=== PATIENT | male | born 1975 | race Caucasian/White ===

== ENCOUNTER 2017-07-24 12:13 | Emergency (ER) | payer OTHER ==
[2017-07-24 12:59] LABS: #Basophils 0.1 thou/uL (0.0-0.2); #Eosinphils 0.5 thou/uL (0.0-0.7); #Lymphocytes 2.4 thou/uL (1.20-3.40); #Monocytes 1.1 thou/uL (0.11-0.59); #Neutrophils 5.6 thou/uL (1.40-6.50); %Basophils 0.7 % (0.0-1.0); %Eosinophils 4.9 % (0.0-10.0); %Lymphocytes 24.8 % (21.0-51.0); %Monocytes 11.5 % (0.0-10.0); %Neutrophils 58.1 % (42.0-75.0); Hemoglobin 11.7 g/dL (14.0-18.0); Mean Corpuscular HGB CONC 34.5 g/dL (32.0-36.0); Mean Corpuscular Hemoglobin 31.9 pg (27.0-31.0); Mean Corpuscular Volume 92.4 fl (80.0-94.0); Platelet Count 276 thou/uL (130-400); RBC Distribution Width 11.3 % (11.5-14.5); Red Blood Cell (RBC) Count 3.67 mill/uL (4.70-6.10); White Blood Cell (WBC) Count 9.5 thou/uL (4.8-10.8)
[2017-07-24 13:05] LABS: Prothrombin Time 13.5 SEC (12.0-14.7)
[2017-07-24 13:14] LABS: ALT (SGPT) 34 U/L (8-55); AST (SGOT) 27 U/L (5-34); Alkaline Phosphatase 53 U/L (40-150); Anion Gap 13 mmol/L (10-20); BUN (Urea Nitrogen) 20 mg/dL (8.9-20.6); Bilirubin, Total 0.7 mg/dL (0.2-1.2); Calc. Creatinine Clearance 0 mL/min (70-130); Calcium 9.1 mg/dL (7.8-10.44); Carbon Dioxide 25 mmol/L (22-29); Chloride 105 mmol/L (98-107); Estimated GFR-MDRD 75; Globulin 2.5 g/dL (2.4-3.5); Glucose 84 mg/dL (70-105); Potassium 4.1 mmol/L (3.5-5.1); Protein, Total 6.5 g/dL (6.0-8.3); Sodium 139 mmol/L (136-145)
[2017-07-24] MEDS ORDERED: Pantoprazole 40 MG VIAL ONE ×2 (13:28→14:44)
[2017-07-24] MEDS ORDERED: Morphine 4 MG/ML Carpuject ONE (18:57)
[2017-07-24] MEDS ORDERED: Ondansetron HCl/PF 4 MG/2 ML Vial ONE (18:57)
== END 2017-07-24 21:10 | disposition short-term general hospital (02) ==
LOC: SCSER 12:13
DX: K92.2 Gastrointestinal hemorrhage, unspecified (principal); E78.5 Hyperlipidemia, unspecified; E11.9 Type 2 diabetes mellitus without complications; F17.220 Nicotine dependence, chewing tobacco, uncomplicated; I10 Essential (primary) hypertension; K21.9 Gastro-esophageal reflux disease without esophagitis; Z79.899 Other long term (current) drug therapy
CPT/HCPCS: 80053; 82274; 85025; 85610; 86850; 86900; 86901; 96365; 96366; 96375; 96376; 99406; C9113; J2270; J2405

== ENCOUNTER 2018-02-06 17:31 | Emergency (ER) | payer OTHER ==
--- NOTE | 2018-02-06 18:21 | RAD ---
LUMBAR SPINE THREE VIEWS: HISTORY: Fall. Back pain. COMPARISON: 01/09/2017 TECHNIQUE: AP, lateral, and coned down views of the lumbar spine obtained. FINDINGS: Three views of the lumbar spine demonstrate no evidence of lumbar spine fractures. No acute bony les ions seen. No significant interval changes seen since the previous comparison radiographs from 01/06. A dorsal column stimulator is seen. IMPRESSION: Normal there views lumbar spine with no evidence of acute or chronic changes seen. POS: [facility]
[2018-02-06] MEDS ORDERED: HYDROcodone/Acetaminophen 7.5/325 mg Tablet ONE (18:41)
[2018-02-06] MEDS ORDERED: Ketorolac Tromethamine 60 MG/2 ML VIAL ONE (18:41)
== END 2018-02-06 19:05 | disposition home or self-care (01) ==
LOC: SCSER 17:31
DX: M54.5 Low back pain (principal); K21.9 Gastro-esophageal reflux disease without esophagitis; E11.9 Type 2 diabetes mellitus without complications; E78.5 Hyperlipidemia, unspecified; I10 Essential (primary) hypertension; F17.220 Nicotine dependence, chewing tobacco, uncomplicated; F43.10 Post-traumatic stress disorder, unspecified; W19.XXXA Unspecified fall, initial encounter
CPT/HCPCS: 72100; 96372; J1885

== ENCOUNTER 2018-02-24 09:55 | Emergency (ER) | payer OTHER ==
[2018-02-24] MEDS ORDERED: Cyclobenzaprine 10 MG TAB ONE (11:01)
--- NOTE | 2018-02-24 11:24 | RAD ---
CERVICAL SPINE RADIOGRAPHS FOUR VIEWS: Date: 02-24-18 Provided Clinical History: Left arm numbness and left arm pain. FINDINGS: Cervical alignment appears normal. Vertebral body heights appear preserved. Intervertebral disc space heights appear preserved. No prevertebral soft tissue swelling apparent. The visualized lung apices appear clear. IMPRESSION: Unremarkable cervical spine radiographs. POS: [facility]
== END 2018-02-24 11:10 | disposition home or self-care (01) ==
LOC: SCSER 09:55
DX: M54.12 Radiculopathy, cervical region (principal); E11.9 Type 2 diabetes mellitus without complications; E78.5 Hyperlipidemia, unspecified; I10 Essential (primary) hypertension; F17.220 Nicotine dependence, chewing tobacco, uncomplicated
CPT/HCPCS: 72040

== ENCOUNTER 2018-05-19 15:57 | Emergency (ER) | payer OTHER ==
[2018-05-19] MEDS ORDERED: Ketorolac Tromethamine 30 MG/ML VIAL ONE (16:17)
--- NOTE | 2018-05-19 17:05 | RAD ---
THREE VIEWS LUMBAR SPINE: History: Back pain. Date: 05-19-18 Comparison: 02-07-18 FINDINGS: AP, lateral, and coned down views of the lumbar spine obtained and demonstrate five non-rib bearing l umbar vertebrae. Vertebral bodies are unremarkable. No evidence of fractures, subluxations, or bony l esions seen. IMPRESSION: Normal three views lumbar spine with no significant bony abnormalities seen. POS: [facility]
== END 2018-05-19 16:55 | disposition home or self-care (01) ==
LOC: SCSER 15:57
DX: M54.5 Low back pain (principal); K21.9 Gastro-esophageal reflux disease without esophagitis; E11.9 Type 2 diabetes mellitus without complications; E78.5 Hyperlipidemia, unspecified; I10 Essential (primary) hypertension; F43.10 Post-traumatic stress disorder, unspecified; W17.89XA Other fall from one level to another, initial encounter
CPT/HCPCS: 72100; 96372; J1885

== ENCOUNTER 2018-10-24 19:59 | Observation (INO) | payer OTHER ==
[2018-10-24] MEDS ORDERED: Metoclopramide HCl 10 MG/2 ML VIAL ONE (20:31)
[2018-10-24] MEDS ORDERED: Meclizine HCl 25 MG TAB ONE (20:31)
[2018-10-24 20:37] LABS: #Basophils 0.1 thou/uL (0.0-0.2); #Eosinphils 0.2 thou/uL (0.0-0.7); #Lymphocytes 2.1 thou/uL (1.20-3.40); #Monocytes 0.8 thou/uL (0.11-0.59); #Neutrophils 6.2 thou/uL (1.40-6.50); %Basophils 0.6 % (0.0-1.0); %Eosinophils 2.5 % (0.0-10.0); %Monocytes 8.7 % (0.0-10.0); %Neutrophils 66.2 % (42.0-75.0); Hemoglobin 12.5 g/dL (14.0-18.0); Mean Corpuscular HGB CONC 33.8 g/dL (32.0-36.0); Mean Corpuscular Volume 94.7 fL (78.0-98.0); Mean Platelet Volume 6.9 fL (7.4-10.4); Platelet Count 320 thou/uL (130-400); RBC Distribution Width 11.8 % (11.5-14.5); Red Blood Cell (RBC) Count 3.91 mill/uL (4.70-6.10); White Blood Cell (WBC) Count 9.3 thou/uL (4.8-10.8)
--- NOTE | 2018-10-24 20:47 | CT ---
FExam: CT brain Provided clinical history: Headache and dizziness FINDINGS: The ventricular system is normal in size and morphology. No evidence for intracranial hemorrhage or m ass effect. The extracranial soft tissues and osseous structures demonstrate an unremarkable CT appea loretta. IMPRESSION: No evidence for intracranial hemorrhage or mass effect.
[2018-10-24 20:59] LABS: ALT (SGPT) 37 U/L (8-55); AST (SGOT) 24 U/L (5-34); Albumin 4.4 g/dL (3.5-5.0); Alkaline Phosphatase 70 U/L (40-150); Anion Gap 12 mmol/L (10-20); BUN (Urea Nitrogen) 16 mg/dL (8.9-20.6); Bilirubin, Total 0.6 mg/dL (0.2-1.2); Calc. Creatinine Clearance 0 mL/min (70-130); Calcium 9.5 mg/dL (7.8-10.44); Carbon Dioxide 26 mmol/L (22-29); Chloride 107 mmol/L (98-107); Estimated GFR-MDRD 62; Glucose 134 mg/dL (70-105); Potassium 3.7 mmol/L (3.5-5.1); Protein, Total 6.4 g/dL (6.0-8.3); Sodium 141 mmol/L (136-145)
[2018-10-25 01:40] VITALS: BMI 31.0
[2018-10-25] MEDS ORDERED: Ondansetron PF 4 MG/2 ML Vial IVP PRN ×2 (01:51→03:18)
[2018-10-25] MEDS ORDERED: Acetaminophen 325 MG TAB PO PRN (01:51)
[2018-10-25] MEDS ORDERED: Sodium Chloride 0.9% 1,000 ML IV SCH (01:51)
[2018-10-25] MEDS ORDERED: Ondansetron ODT 4 MG TAB SL PRN (01:51)
[2018-10-25] MEDS ORDERED: PROVENTIL INHALER 6.7 G (200 INHALATIONS) INH PRN (03:18)
[2018-10-25] MEDS ORDERED: HumaLOG 300 UNITS/3 ML VIAL SC PRN ×2 (03:18)
[2018-10-25] MEDS ORDERED: Dextrose 50% Abboject 50 ML SYRINGE SLOW IVP PRN (03:18)
[2018-10-25] MEDS ORDERED: Polyethylene Glycol 3350 17 GM Packet PO PRN (03:18)
[2018-10-25] MEDS ORDERED: Acetaminophen 500 MG TAB PO PRN (03:18)
[2018-10-25] MEDS ORDERED: Ondansetron ODT 4 MG TAB PO PRN (03:18)
[2018-10-25] MEDS ORDERED: Dextrose 5% in Water 1,000 ML IV PRN (03:18)
[2018-10-25] MEDS ORDERED: traMADol HCl 50 MG TAB PO PRN (03:18)
[2018-10-25] MEDS: Sodium Chloride 0.9% 1,000 ML IV SCH ×2 (03:46→10:52)
[2018-10-25] MEDS: Meclizine HCl 25 MG TAB PO SCH ×2 (05:13→14:25)
[2018-10-25] MEDS ORDERED: metFORMIN XR 500 MG TAB PO SCH (09:00)
[2018-10-25] MEDS ORDERED: Aripiprazole 10 MG TAB PO SCH (09:00)
[2018-10-25] MEDS ORDERED: DULoxetine 30 MG CAP PO SCH (09:00)
[2018-10-25] MEDS ORDERED: lamoTRIgine 100 MG TAB PO SCH (09:00)
--- NOTE | 2018-10-25 11:09 | HP ---
PRIMARY CARE PROVIDER: [facility], [place], [place]. CHIEF COMPLAINT: Dizziness. HISTORY OF PRESENT ILLNESS: This is a 42-year-old male, who presents to [facility] Emergency Department complaining of increasing dizziness in the last 24 hours. The patient states the symptoms began somewhat abruptly after eating dinner approximately at 6:00 pm on 10/24/2018. The patient felt like the room was spinning and felt drunk walking while attempting to walk. The patient states he had difficulty with vision and focusing due to the spinning sensation. The patient denied any change to his chronic medication regimen, ingestion of illicit substances, or exposure to chemicals. The patient denied any family members with similar symptoms or personal history of recurrent or prior dizziness. The patient states he is on multiple antihypertensive medications due to history of hypertension. The patient denied any recent submersion, high altitude travel, ear or sinus pressure. The patient denied any nausea, vomiting, neck stiffness, or ear drainage. The patient denied taking any specific home remedy for relief. In the emergency room, the patient underwent general evaluation including CT imaging of the brain showing no acute process. The patient received IV normal saline x2 L in addition to Reglan and meclizine. The patient states his symptoms have improved after supportive management. PAST MEDICAL HISTORY: 1. irritable bowel syndrome. 2. Diabetes mellitus type 2, on oral hypoglycemics. 3. Hyperlipidemia. 4. Degenerative disk disease at L5-S1. 5. Hypertension. 6. Chronic pain syndrome. 7. Posttraumatic stress disorder. PAST SURGICAL HISTORY: 1. Status post Geeta fundoplication. 2. Status post appendectomy. 3. Status post left lower extremity surgery. 4. Status post right hand surgery. 5. Status post back surgery for herniated disk, L5-S1. 6. Status post spinal stimulator placement. CURRENT MEDICATIONS: 1. Proventil HFA 2 puffs inhaled q.4 hours p.r.n. 2. Norvasc 15 mg p.o. daily. 3. Abilify 20 mg p.o. q.a.m. 4. Lipitor 80 mg p.o. q.h.s. 5. Zyrtec 10 mg p.o. daily. 6. Duloxetine 60 mg p.o. b.i.d. 7. Lamotrigine 200 mg p.o. b.i.d. 8. Lisinopril 5 mg p.o. daily. 9. Glucophage XR 500 mg p.o. q.a.m. 10. MiraLax 17 g p.o. daily. 11. Prazosin 6 mg p.o. q.h.s. 12. Tramadol 50 mg p.o. q.6 hours p.r.n. ALLERGIES: NO KNOWN DRUG ALLERGIES. FAMILY HISTORY: Positive for hypertension. SOCIAL HISTORY: The patient is , residing in [place], [place]. Works for [employer]. [place] [employer] the [employer]. Alcohol use. No illicit drug use or tobacco products. REVIEW OF SYSTEMS: CONSTITUTIONAL: Negative for weight loss or gain, ability to conduct usual activities. SKIN: Negative for rash, itching. EYES: Negative for double vision, pain. ENT/MOUTH: Negative for nose bleeding, neck stiffness, pain, tenderness. CARDIOVASCULAR: Negative for palpitations, dyspnea on exertion, orthopnea. RESPIRATORY: Negative for shortness of breath, wheezing, cough, hemoptysis, fever or night sweats. GASTROINTESTINAL: Negative for poor appetite, abdominal pain, heartburn, nausea, vomiting, constipation, or diarrhea. GENITOURINARY: Negative for urgency, frequency, dysuria, nocturia. MUSCULOSKELETAL: Negative for pain, swelling. NEUROLOGIC/PSYCHIATRIC: Negative for anxiety, depression. ALLERGY/IMMUNOLOGIC: Negative for skin rash, bleeding tendency. Otherwise, negative except as stated per HPI. PHYSICAL EXAMINATION: VITAL SIGNS: On admission, blood pressure 116/72, pulse 97, respiratory rate 16, temperature 97.7 degrees Fahrenheit, O2 saturation 96% on room air. GENERAL APPEARANCE: This is a 42-year-old male, alert and oriented x3, pleasant, conversant, in no acute distress. HEENT: Pupils are equal, round, reactive to light and accommodation. Extraocular muscles are intact. No nystagmus noted. Nares patent. OP is clear. Teeth in good repair. NECK: Supple. No cervical adenopathy. No thyromegaly. No carotid bruits. No JVD appreciated. Cervical spine with full active and passive range of motion. No meningeal signs noted. CHEST: Lungs are clear to auscultation bilaterally. CARDIOVASCULAR: S1 and S2 without noted murmur, rub, or gallop. ABDOMEN: Rounded, soft, nontender, and nondistended. Bowel sounds are positive in all 4 quadrants. There is no rebound or guarding appreciated. EXTREMITIES: Warm and dry with fair turgor. No clubbing, cyanosis, or asymmetric edema appreciated. Pulses palpable distally at the dorsalis pedis, posterior tibial, and popliteal arteries bilaterally. Capillary refill less than 2 seconds. NEUROLOGIC: Cranial nerves 2 through 12 are grossly intact. No focal or lateralizing signs appreciated. PERTINENT LABORATORY AND X-RAY FINDINGS: Basic metabolic profile showed creatinine 1.27, estimated GFR 62, lactic acid level 1.1, calcium 9.5. LFTs within normal limits. Troponin I negative x1. CBC showed a white blood cell count of 9.3, hemoglobin 12.5, hematocrit 37, platelet count 320, with normal differential. CT of the brain without contrast dated 10/24/2018 showed no acute intracranial process. EKG dated 10/24/2018 by my interpretation shows sinus mechanism with heart rates in the 70s. Normal R-wave progression noted in the precordial leads. Normal axis. No acute ST-T wave changes appreciated. ASSESSMENT AND PLAN: 1. Orthostatic hypotension. The patient will be observed on the telemetry unit. Suspect iatrogenic in conjunction with volume depletion. We will continue intravenous normal saline at 125 mL/h. Avoid antihypertensive medications. Serial monitoring. The patient may need additional titration of his antihypertensive regimen on an ongoing basis after discharge. 2. Vertigo. Appears secondary to #1. See #1 above. Trial of meclizine 25 mg p.o. q.8 hours. 3. Chronic kidney disease stage 2. We will continue IV fluids as outlined previously. Avoid nephrotoxic agents and limit contrast exposure. 4. Diabetes mellitus type 2. Insulin sliding scale for reflexive coverage. Hold metformin. Serial Accu-Cheks a.c. and h.s. 5. Hyperlipidemia. Resume Lipitor 80 mg p.o. daily. 6. Prophylaxis. SCDs while in bed. Pepcid 20 mg p.o. b.i.d. 7. Code status is full. Surrogate medical decision maker is the patient's spouse. Job ID: [id number]
[2018-10-25] MEDS ORDERED: Lisinopril 2.5 MG TAB PO SCH (12:00)
[2018-10-25] MEDS ORDERED: Amlodipine 5 MG TAB PO SCH (12:00)
[2018-10-25 12:18] VITALS: BP 126/83; TEMP 98.3
[2018-10-26] MEDS ORDERED: Amlodipine 5 MG TAB PO SCH (09:00)
[2018-10-26] MEDS ORDERED: Lisinopril 2.5 MG TAB PO SCH (09:00)
== END 2018-10-25 15:37 | disposition home or self-care (01) ==
LOC: ERS 19:59 → 2SW 23:50
PROVIDERS: ADMIT Family Medicine; ATTEND Family Medicine
DX: I95.1 Orthostatic hypotension (principal); I12.9 Hypertensive chronic kidney disease with stage 1 through stage 4 chronic kidney disease, or unspecified chronic kidney disease; E11.22 Type 2 diabetes mellitus with diabetic chronic kidney disease; N18.2 Chronic kidney disease, stage 2 (mild); K58.9 Irritable bowel syndrome, unspecified; E78.5 Hyperlipidemia, unspecified; G89.4 Chronic pain syndrome; F43.10 Post-traumatic stress disorder, unspecified; Z79.84 Long term (current) use of oral hypoglycemic drugs; Z79.899 Other long term (current) drug therapy
CPT/HCPCS: 36415; 36416; 70450; 80053; 83605; 83735; 84443; 84484; 85025; 93005; 96361; 96374; G0378; J2765